=== PATIENT | male | born 1935 | race African-American/Black ===

== ENCOUNTER 2019-10-16 10:36 | Emergency (ER) | payer OTHER, BC ==
[~2019-10-16] VITALS: Ht 188 cm; Wt 73.5 kg
[2019-10-16 10:43] VITALS: BP 131/80; Ht 188 cm; Wt 73.5 kg
== END 2019-10-16 12:37 | disposition home or self-care (01) ==
LOC: ED 10:36
DX: S46.819A Strain of other muscles, fascia and tendons at shoulder and upper arm level, unspecified arm, initial encounter (principal); X58.XXXA Exposure to other specified factors, initial encounter; Y93.89 Activity, other specified; Y92.89 Other specified places as the place of occurrence of the external cause; Y99.8 Other external cause status
CPT/HCPCS: Q0092